=== PATIENT | female | born 1945 | race Caucasian/White ===

== ENCOUNTER 2017-09-14 12:36 | Emergency (ER) | payer OTHER ==
[~2017-09-14] VITALS: Ht 152.4 cm; Wt 56.7 kg
[2017-09-14] MEDS ORDERED: GEMFIBROZIL600 MG PO (13:15)
[2017-09-14] MEDS ORDERED: ATIVAN1 MG PO (13:16)
[2017-09-14] MEDS ORDERED: METOPROLOL SUCC25 MG PO (13:16)
[2017-09-14] MEDS ORDERED: ESCITALOPRAM OX10 MG PO (13:16)
[2017-09-14] MEDS ORDERED: BEVESPI AEROS10.7 GM IH (13:17)
[2017-09-14] MEDS ORDERED: ZOCOR40 MG (13:17)
== END 2017-09-14 22:15 | disposition home or self-care (01) ==
LOC: ER 12:36
DX: R21 Rash and other nonspecific skin eruption (principal); T78.49XA Other allergy, initial encounter; X58.XXXA Exposure to other specified factors, initial encounter

== ENCOUNTER 2017-10-18 16:43 | Emergency (ER) | payer OTHER ==
[~2017-10-18] VITALS: Ht 152.4 cm; Wt 56.7 kg
[~2017-10-18 16:43] MED LIST: ATIVAN1 MG PO; BEVESPI AEROS10.7 GM IH; ESCITALOPRAM OX10 MG PO; GEMFIBROZIL600 MG PO; METOPROLOL SUCC25 MG PO; ZOCOR40 MG
[2017-10-18] MEDS ORDERED: LOSARTAN POTASS50 MG (17:34)
[2017-10-18] MEDS ORDERED: [UNRECOGNIZED DRUG - OTHER] (17:36)
[2017-10-18] MEDS ORDERED: [UNRECOGNIZED DRUG - OTHER] (17:38)
== END 2017-10-18 19:58 | disposition home or self-care (01) ==
LOC: ER 16:43
DX: B34.9 Viral infection, unspecified (principal)